=== PATIENT | female | born 1955 | race Caucasian/White ===

== ENCOUNTER → 2023-12-17 06:28 | Day surgery (SDC) | payer MEDICARE, OTHER, SELFPAY | LOC: GI 06:28 | PROVIDERS: ATTENDING PHYSICIAN Internal Medicine Gastroenterology | DX: K21.00 Gastro-esophageal reflux disease with esophagitis, without bleeding (principal); K44.9 Diaphragmatic hernia without obstruction or gangrene; K31.7 Polyp of stomach and duodenum; K22.89 Other specified disease of esophagus | CPT/HCPCS: 43251; 88305 ==

== ENCOUNTER → 2023-12-19 11:30 | Outpatient (REF) | payer MEDICARE, OTHER, SELFPAY | LOC: WDC 11:30 | PROVIDERS: ATTENDING PHYSICIAN Family Medicine | DX: Z12.31 Encounter for screening mammogram for malignant neoplasm of breast (principal) | CPT/HCPCS: 77063; 77067 ==

== ENCOUNTER 2024-01-15 06:29 | Day surgery (SDC) | payer MEDICARE, OTHER, SELFPAY ==
[2023-12-30 12:06] VITALS: BMI 24.6
[2024-01-15 11:52] VITALS: BP 151/82
[2024-01-15] MEDS: NORMOSOL-R 1000 IV (12:14)
[2024-01-15] MEDS: TYLENOL 1000 MG PO (12:17)
[2024-01-15 12:25] VITALS: BMI 24.6
[2024-01-15 14:47] VITALS: BP 113/65
[2024-01-15 15:00] VITALS: BP 120/75
[2024-01-15 15:15] VITALS: BP 126/76
[2024-01-15 15:30] VITALS: BP 131/75
== END 2024-01-15 15:55 | disposition home or self-care (01) ==
LOC: SDS 06:29
PROVIDERS: ATTENDING PHYSICIAN Student in an Organized Health Care Education/Training Program; FAMILY PHYSICIAN Family Medicine
DX: G57.62 Lesion of plantar nerve, left lower limb (principal); M20.32 Hallux varus (acquired), left foot; L84 Corns and callosities; M24.575 Contracture, left foot
CPT/HCPCS: 28308; 28080; 88304; C1713

== ENCOUNTER → 2024-05-30 09:25 | Outpatient (REF) | payer MEDICARE, OTHER, SELFPAY | LOC: RAD 09:25 | PROVIDERS: ATTENDING PHYSICIAN Internal Medicine Critical Care Medicine; FAMILY PHYSICIAN Family Medicine | DX: R91.1 Solitary pulmonary nodule (principal); J47.9 Bronchiectasis, uncomplicated | CPT/HCPCS: 71250 ==

== ENCOUNTER → 2024-06-10 18:02 | Outpatient (REF) | payer MEDICARE, OTHER, SELFPAY | LOC: MRI 3T 18:02 | PROVIDERS: ATTENDING PHYSICIAN Specialist; PRIMARYCARE PHYSICIAN Family Medicine | DX: M25.561 Pain in right knee (principal) | CPT/HCPCS: 73721 ==

== ENCOUNTER → 2024-08-21 10:19 | Outpatient (REF) | payer MEDICARE, OTHER, SELFPAY | LOC: RAD 10:19 | PROVIDERS: ATTENDING PHYSICIAN Family Medicine | DX: R05.3 Chronic cough (principal) | CPT/HCPCS: 71046 ==

== ENCOUNTER 2024-11-13 13:56 | Emergency (ER) | payer MEDICARE, OTHER, SELFPAY ==
[2024-11-13 14:07] VITALS: BP 157/89
--- NOTE | 2024-11-13 14:54 | ED.GENMED ---
History of Present Illness
General
Chief Complaint: Fall
Source: patient
Exam Limitations: none
Time Seen by Provider: 11/13/24 14:12
Nursing documentation reviewed up to this point in time: agreed with
History of Present Illness
History of Present Illness:
69-year-old female with a history of hypertension, hyperlipidemia, mitral valve prolapse, neuropathy, presents after mechanical fall when she was walking on the side of a gymnastics mat and did not realize there was a 10 inch drop-down. Patient
says she stepped off with her left foot and ankle and ended up landing directly on her feet first 10 inches down and then onto her knees bilaterally in her hands bilaterally. She did not hit her head. This was over 1 week ago. Patient says she
has had pain and swelling to her left anterior proximal tibial region as well as her right proximal tibial region but less so than the left and pain in her right hand in the palmar aspect especially when she is palpates a certain spot.
Patient has not had any limiting of her gait, she has been able to walk around and do her normal activities but because the pain and soreness and swelling was persistent she decided to get checked out today. She has not really been taking anything
for pain. She has no numbness tingling or weakness to her arms or legs.
There are no wounds
Past History
Past History
ED Past Medical History: Asthma, GERD and Other (MVP, SVT)
ED Past Surgical History: Cholecystectomy, Gynecological (Hysterectomy) and Other (Lung nodule biopsy)
Social History
Tobacco: Former smoker
Alcohol: None
Family History
Family History: Other (Father with an VA, brother with VA �2)
Review of Systems
Review of Systems
Allergies reviewed?: Yes
All Other Systems: Not applicable
Phy Exam
Physical Exam
Physical Exam:
GENERAL: Alert , in no apparent distress
HEAD: NCAT
CV: DP PULSES NORMAL
NEUROLOGICAL: Alert and oriented, no focal neuro deficits, CN intact, 5/5 strength, sensation intact
SKIN: Warm and dry, NO BRUISING OR REDNESS OR WOUNDS
MUSCULOSKELETAL: ANTERIOR TIBIAL SLIGHT SWELLING PROXIMAL L TIBIA REGION; FULL ROM FO THE KNEE NO JOINT LAXITY
RIGHT KNEE MINIMAL SWELLING ANTERIOR PROX TIBIAL REGION FULL ROM NO JOINT LAXITY
RIGHT HAND PALMAR SURFACE POIN TENDER REGION INT HE THENAR EMNINENCE
FULL PAINLESS ROM
NV INTACT
PSYCH: Normal and appropriate interaction.
Course
Orders/Labs/Results
Orders:
Orders
11/13/24 14:54
CR Hand - Right Min 3 Views Urgent
Comment:
Reason For Exam: right hand pain fall
Knee, Left 4 or More Views [CR Knee - Left 4 Or More View*] Urgent
Comment:
Reason For Exam: bilateral knee pain after fall, L>R
Knee, Right 4 or More Views [CR Knee- Right 4 Or More View*] Urgent
Comment:
Reason For Exam: right knee pain after fall
Vital Signs
Initial and Last Documented VS:
Initial Vital Signs
Temp Pulse Resp BP Pulse Ox
36.8 C 75 18 157/89 100
11/13/24 14:07 11/13/24 14:07 11/13/24 14:07 11/13/24 14:07 11/13/24 14:07
Last Documented Vital Signs
Temp Pulse Resp BP Pulse Ox
36.8 C 75 18 157/89 100
11/13/24 14:07 11/13/24 14:07 11/13/24 14:07 11/13/24 14:07 11/13/24 14:07
MDM/Problems Addressed
Differential Diagnosis Includes:
contusion, sprain, strain, dislocation carpals, ganglion cyst
MDM/Problems Addressed:
69 y/o f
htn ,hld
no thinners
fall 8 days ago while walking on the side of gymnastic mat in gym and didn't realize the drop off on the side was about 10 inches, landed on her knees and hands
pain L>R knee and R palm
otherwise doing well
walking
some swelling
nv intact
mild swelling anterior tibial region butfull rom and ambularoty
suspicion for tibial plateau fx less becuase pt is walking and this is 1 week old and not a significant drop off
xrays indep reviewed, neg for fx
some OA
nsaids or tylenol and f/u ortho
*Critical Care Note
Total Time (30-74mins, 75-104mins- exclusive of procedures): Not Applicable
ED Attending Note
-
Portions of this chart may have been created with voice recognition software.� Occasional wrong word or��sound alike� substitutions may have occurred due to the inherent limitations of voice recognition software.
Discharge Plan
Departure
Patient Disposition: Home (Routine Discharge)
Date of Disposition: 11/13/24
Time of Disposition: 16:07
Patient with high blood pressure during this ER visit?: No
Covid-19: Not Applicable
Discharge Problem:
Contusion of hand, right, Arthritis of both knees, bilateral knee contusion
Instructions: Contusion (DC), BLOOD PRESSURE
Prescriptions:
No Action
multivitamin 1 EACH tablet
1 ea PO DAILY
acetaminophen [Tylenol Arthritis Pain] 650 MG tablet extended release
650 mg PO PRN PRN (Reason: pain)
cholestyramine-aspartame [Cholestyramine Light] 4 GM powder in packet
4 gm PO PRN PRN (Reason: stomach upset)
atorvastatin 10 MG tablet
10 mg PO QPM
famotidine 40 MG tablet
40 mg PO HS
losartan 25 MG tablet
25 mg PO DAILY
esomeprazole magnesium [Nexium] 20 MG capsule,delayed release(DR/EC)
20 mg PO DAILY
VSL#3 112.5 billion cell Capsule
1 - 2 cap PO DAILY
Neurx-Tf
1 tab PO DAILY
Referrals:
Gordon Westbrook, DO [Family Provider] -
Deng Van MD [Active] - Follow up in 2-3 days
Activity Restrictions/Additional Instructions:
YOUR XRAYS SHOW NO SIGNS OF FRACTURE
YOU H AVE MILD ARTHRITIS CHANGES IN YOUR HAND AND YOUR KNEES BUT MINIMAL
ICE OFF AND ON STILL NEEDED
TYLENOL OR MOTRIN NEEDED FOR PAIN
FOLLOW UP WITH ORTHOPEDICS
YOU CAN WEAR WILNER WRAP DURING DAY TOLERATED
RETURN FOR ANY CONCERNS.
Interventions
Interventions:
*Risk Screen - Suicide Last Done: 11/13/24 14:07
*General Assessment Last Done: 11/13/24 14:07
*Neglect/Abuse Screening Last Done: 11/13/24 14:07
*Nursing Disposition Last Done: 11/13/24 16:36
ED-Musculoskeletal Assessment Last Done: 11/13/24 14:46
ED- Neurological Assessment Last Done: 11/13/24 14:46
ED-Skin Assessment Last Done: 11/13/24 14:46
Discharge Date and Time
Discharge Date/Time: 11/13/24 16:36
Print Language: ARABIC
== END 2024-11-13 16:36 | disposition home or self-care (01) ==
LOC: EMR 13:56
PROVIDERS: EMERGENCY PHYSICIAN Emergency Medicine; FAMILY PHYSICIAN Family Medicine
DX: S60.221A Contusion of right hand, initial encounter (principal); S80.01XA Contusion of right knee, initial encounter; S80.02XA Contusion of left knee, initial encounter; W19.XXXA Unspecified fall, initial encounter; M17.0 Bilateral primary osteoarthritis of knee; I10 Essential (primary) hypertension; E78.5 Hyperlipidemia, unspecified; Z87.891 Personal history of nicotine dependence
CPT/HCPCS: 99283; 73130; 73564

== ENCOUNTER → 2024-12-03 10:02 | Outpatient (REF) | payer MEDICARE, OTHER, SELFPAY | LOC: MRI 3T 10:02 | PROVIDERS: ATTENDING PHYSICIAN Orthopaedic Surgery; FAMILY PHYSICIAN Family Medicine | DX: M25.531 Pain in right wrist (principal) | CPT/HCPCS: 73221 ==

== ENCOUNTER → 2024-12-06 06:39 | Outpatient (REF) | payer MEDICARE, OTHER, SELFPAY | LOC: PAVMRI 06:39 | PROVIDERS: ATTENDING PHYSICIAN Physician Assistant Medical; FAMILY PHYSICIAN Family Medicine | DX: M25.561 Pain in right knee (principal); M25.562 Pain in left knee | CPT/HCPCS: 73721 ==

== ENCOUNTER → 2025-01-07 13:32 | Outpatient (REF) | payer MEDICARE, OTHER, SELFPAY | LOC: WDC 13:32 | PROVIDERS: ATTENDING PHYSICIAN Family Medicine | DX: Z12.31 Encounter for screening mammogram for malignant neoplasm of breast (principal) | CPT/HCPCS: 77063; 77067 ==

== ENCOUNTER → 2025-03-19 07:21 | Outpatient (REF) | payer MEDICARE, OTHER, SELFPAY | LOC: RCS 07:21 | PROVIDERS: ATTENDING PHYSICIAN Internal Medicine Cardiovascular Disease; FAMILY PHYSICIAN Family Medicine | DX: R07.89 Other chest pain (principal); R00.2 Palpitations | CPT/HCPCS: 78452; 93017; A9500 ==

== ENCOUNTER → 2025-03-27 07:29 | Outpatient (REF) | payer MEDICARE, OTHER, SELFPAY | LOC: MRI 3T 07:29 | PROVIDERS: ATTENDING PHYSICIAN Physician Assistant; FAMILY PHYSICIAN Family Medicine | DX: M54.16 Radiculopathy, lumbar region (principal) | CPT/HCPCS: 72148 ==